=== PATIENT | male | born 2000 | race Caucasian/White ===

== ENCOUNTER 2024-01-17 19:10 | Emergency (ER) | payer MEDICAID, SELFPAY ==
[2024-01-17 19:11] VITALS: BP 154/97; PULSE 100; RESP 16; TEMP 36.6; O2SAT 98; BMI 17.9
--- NOTE | 2024-01-17 19:56 | EX.ED.VIS.PS ---
HPI HPI - Psych History of Present Illness Chief Complaint: Suicidal Informant: patient and police/patrol deputy sheriff Narrative Narrative: 23-year-old male brought to the emergency department by the police. Patient states that he got into an argument with his grandfather when his grandfather insinuated that he would be throwing him out of the house. Grandfather reportedly stated that he was going to have a tarp made into a tent as it would be good for sleeping in the wintertime. Patient reportedly (per police) made suicidal and homicidal threats. Patient states that since around the age of 17 he has been having both male and female voices in his head. He states that they tend to be violent voices. He states that in the recent past they seem to have been less prevalent but still present. He admits to tobacco and cannabis use on a daily basis. He notes no prior psychiatric treatments. Currently takes no medications. Please note that he has been diagnosed with schizophrenia in the past. Patient does not concur with this. PFSH PFS Medical History no medical history Home Medications ?Medication ?Instructions ?Recorded ?Last Taken ?Type NK 01/17/24 Unknown History Allergy/AdvReac Type Severity Reaction Status Date / Time azithromycin (From Zithromax) Allergy Intermediate Swelling Verified 01/17/24 19:14 Surgical History no surgical history Social History Smoking Status: Current every day smoker tobacco type: e-cigarettes ROS ROS ED Constitutional Constitutional ED: Denies chills or weight loss Eyes Eyes: Denies change in vision or diplopia ENT ENT ED: Denies ear pain, rhinorrhea or sore throat Cardiovascular Cardiovascular: Denies chest pain, orthopnea, palpitations or racing heartbeat Respiratory/Chest Respiratory/Chest: Denies cough, dyspnea or orthopnea Gastrointestinal Gastrointestinal: Denies abdominal pain, diarrhea, nausea or vomiting Genitourinary Genitourinary ED: Denies dysuria, hematuria or urinary frequency Musculoskeletal Musculoskeletal: Denies arthralgias or myalgias Integumentary Denies abscess or rash Neurologic Neurologic: Denies headache(s) or weakness Psychiatric Psychiatric: Reports other Details: See history of present illness ; Denies anxiety or depression Endocrine Endocrinology: Denies polydipsia, polyphagia or polyuria Allergic/Immunologic Allergic/Immunologic ED: Denies mouth swelling, tongue swelling or urticaria EXAM Physical Exam Const Vital Signs: 01/17/24 19:11 01/17/24 20:11 Temperature 97.9 F Temperature Source Temporal Pulse Rate 100 60 Respiratory Rate 16 18 Blood Pressure 154/97 H 102/70 Blood Pressure Mean 116 80 Pulse Ox 98 100 Oxygen Delivery Method Room Air Room Air Positive well nourished and well developed General Appearance ED: well developed and NAD HEENT Reports normocephalic, head/scalp atraumatic and moist mucous membranes Eyes PERRL and EOMs intact bilaterally Neck no lymphadenopathy, supple and no JVD Resp normal respiratory effort and clear to auscultation bilaterally Cardio regular rate, regular rhythm and no murmurs GI normal to inspection, nondistended, normoactive bowel sounds and non-tender Palpation: soft Back/Spine no CVA tenderness and normal ROM Extremity normal to inspection General Extremety ED: Negative for edema General Extremity: Negative for edema Neuro oriented x3 and CN's II-XII intact bilaterally Sensorium / Orientation: alert Motor Exam: strength 5/5 throughout Psych mental status grossly normal and cooperative Psych Narrative: Patient admits to me that he did make statements about killing himself and his grandfather Appearance: grossly normal Attitude: guarded Activity / Motor Behavior: fidgetting and avoids eye contact Speech: minimal Mood & Affect: Negative for depressed or tearful Attention / Concentration: attention grossly intact Memory / Cognition: memory grossly intact Skin no rashes or lesions noted and no wounds MDM MDM MDM Narrative Medical decision making narrative: Differential diagnosis includes depression suicidal ideation and homicidal ideation decompensated schizophrenia untreated schizophrenia situational reaction Psychiatric screening examination was performed. CBC is unremarkable. Liver enzymes showed a bilirubin of 2.8. Toxicology positive for cannabinoids negative for alcohol. BMP is within normal limits. Except for a potassium of 3.2. I will give him a dose of potassium here. Patient will be assessed by crisis. Disposition will be made following their assessment. History & Record Review Discussion w/independent historian: Patient and Other (Police) Lab Data Attestation: I reviewed the patient's lab results. Labs: Laboratory Results - last 24 hr 01/17/24 01/17/24 19:20 19:25 WBC 7.0 RBC 5.23 Hgb 16.3 Hct 44.8 MCV 85.7 MCH 31.2 MCHC 36.4 H RDW Std Deviation 40.0 RDW Coeff of Gerardo 12.9 Plt Count 161 MPV 11.9 Immature Gran % (Auto) 0.300 Neut % (Auto) 72.4 H Lymph % (Auto) 19.1 [place] % (Auto) 5.8 Eos % (Auto) 1.7 Baso % (Auto) 0.7 Absolute Neuts (auto) 5.1 Absolute Lymphs (auto) 1.34 Nucleated RBC % 0 Sodium 138 Potassium 3.2 L Chloride 105 Carbon Dioxide 30.0 Anion Gap 3 L BUN 12 Creatinine 1.14 Estim Creat Clear Calc 76.34 Est GFR (MDRD) Af Amer 102 Est GFR (MDRD) Non-Af 84 BUN/Creatinine Ratio 10.5 Glucose 73 L Calcium 9.3 Total Bilirubin 2.80 H AST 9 L ALT 19 Alkaline Phosphatase 72 Total Protein 7.7 Albumin 4.8 Globulin 2.9 Albumin/Globulin Ratio 1.7 Urine Opiates Screen NEGATIVE Urine Methadone Screen NEGATIVE Ur Barbiturates Screen NEGATIVE Ur Phencyclidine Scrn NEGATIVE Ur Amphetamines Screen NEGATIVE MDMA (Ecstasy) Screen NEGATIVE U Benzodiazepines Scrn NEGATIVE Urine Cocaine Screen NEGATIVE U Cannabinoids Screen POSITIVE H Ur Drug Screen Comment Ethyl Alcohol < 3.0 EKG Initial EKG: Attestation: I personally reviewed and interpreted this EKG as follows: Comments: Sinus bradycardia with a ventricular rate of 57 bpm. No significant QT prolongation or preexcitation noted Management Discussion w/another healthcare provider: Behavioral health (Crisis) Discharge Plan Triage Chief Complaint: Suicidal ED Provider: Ernesto Cabral Dx/Rx/DC Orders Clinical Impression: Auditory hallucinations, Homicidal thoughts, Suicidal thoughts, Hypokalemia Prescriptions: No Action NK Primary Care Provider: Care Physician,No Primary Referrals: Care Physician,No Primary [Primary Care Provider] - Print Language: Polish
[2024-01-17 20:11] VITALS: BP 102/70; PULSE 60; RESP 18; O2SAT 100
[2024-01-17 20:11] LABS: Absolute Lymphocyte Count 1.34 X10^3/uL (0.83-4.51); Absolute Neutrophil Count 5.1 X10^3/uL (2.0-7.7); Basophil# 0.05 X10^3/uL; Basophil% 0.7 % (0-1); Eosinophil# 0.12 X10^3/uL; Eosinophils% 1.7 % (0-5); Hematocrit 44.8 % (40-54); Hemoglobin 16.3 g/dL (13.0-16.5); Lymphocyte # 1.34 X10^3/ul (0.83-4.51); Lymphocyte % 19.1 % (19-41); Mean Corp Hgb Conc 36.4 g/dL (32-36); Mean Corpuscular Hgb 31.2 pg (27.0-32.0); Mean Corpuscular Volume 85.7 fL (80-94); Mean Platelet Vol. 11.9 fl (6.2-12.0); Monocyte# 0.41 X10^3/uL; Monocyte% 5.8 % (0-10); NRBC Flagged by Analyzer 0 % (0-5); Neutrophil # 5.08 X10^3/uL (2.7-7.7); Neutrophil % 72.4 % (47-70); Platelet Count 161 K/mm3 (150-450); RBC Distribution Width CV 12.9 % (11.6-14.6); Red Blood Count 5.23 M/mm3 (4.6-6.2)
[2024-01-17 20:27] LABS: Alcohol, Blood (Medical)-Serum < 3.0 mg/dL
[2024-01-17 20:30] LABS: ALB/GLOB Ratio 1.7 RATIO (0.9-2.4); AST(SGOT) 9 U/L (15-37); Alanine Aminotransfer ALT/SGPT 19 U/L (16-61); Albumin, Serum 4.8 g/dL (3.2-5.0); Alkaline Phosphatase 72 U/L (45-117); Anion Gap 3 (5-15); BUN 12 mg/dL (7-18); BUN/Creat Ratio 10.5 RATIO (10-20); Calcium,Total 9.3 mg/dL (8.5-10.1); Chloride 105 mmol/L (98-107); Creatinine, Serum 1.14 mg/dL (0.70-1.30); EST Glomerular Filtration Rate 84 mL/min (>60); Est Glom Filt Rate - Afr Amer 102 mL/min (>60); Estimated Creatinine Clearance 76.34 ml/min; Globulin 2.9 g/dL (2.2-4.2); Glucose 73 mg/dL (74-106); Potassium 3.2 mmol/L (3.5-5.1); Protein, Total 7.7 g/dL (6.4-8.2); Sodium Level 138 mmol/L (136-145)
[2024-01-17 20:33] LABS: Amphetamine Urine VISTA NEGATIVE (<1000 ng/mL); Barbiturate Urine VISTA NEGATIVE (< 200 ng/mL); Benzodiazepine Urine VISTA NEGATIVE (< 200 ng/mL); Cocaine Urine VISTA NEGATIVE (< 300 ng/mL); Ecstacy Urine VISTA NEGATIVE (< 500 ng/mL); Methadone Urine VISTA NEGATIVE (< 300 ng/mL); PCP Urine VISTA NEGATIVE (< 25 ng/mL); THC Urine VISTA POSITIVE (< 50 ng/mL); Vista UDS pH Range 6
--- NOTE | 2024-01-17 22:14 | EKG12_ITS ---
Test Reason : Blood Pressure : / mmHG Vent. Rate : 057 BPM Atrial Rate : 057 BPM P-R Int : 138 ms QRS Dur : 108 ms QT Int : 392 ms P-R-T Axes : 034 043 048 degrees QTc Int : 381 ms Sinus bradycardia with sinus arrhythmia Otherwise normal ECG Confirmed by ABELARDO CERDA, KIANA ([id number]), publishing editor BANG RODRIGUEZ ([id number]) on 01/24/2024 10:34:45 A M Referred By: MELIDA Confirmed By:KATERIN ZHOU MD
[2024-01-17] MEDS: Potassium Chloride Oral Tablet 20 MEQ 40 MEQ PO (23:11)
[2024-01-18 02:49] VITALS: BP 117/76; PULSE 60; RESP 16; TEMP 36.7; O2SAT 98
[2024-01-18 10:00] VITALS: BP 110/77; PULSE 71; RESP 16; O2SAT 98
--- NOTE | 2024-01-18 13:04 | ED.RN ---
report called to MASSIEL Delgado at [facility], [place].
[2024-01-18 13:51] VITALS: BP 110/77; PULSE 71; RESP 16; TEMP 36.7; O2SAT 98
== END 2024-01-18 13:30 ==
PROVIDERS: Emergency Provider Emergency Medicine; Visit Provider Emergency Medicine
DX: R44.0 Auditory hallucinations (principal); R45.850 Homicidal ideations; R45.851 Suicidal ideations; E87.6 Hypokalemia; F17.290 Nicotine dependence, other tobacco product, uncomplicated; F12.90 Cannabis use, unspecified, uncomplicated
CPT/HCPCS: 80053; 80307; 82077; 85025; 93005; 99284